=== PATIENT | female | born 1995 | race Caucasian/White ===

== ENCOUNTER 2018-10-23 06:04 | Emergency (ER) | payer SELFPAY ==
--- NOTE | 2018-10-23 08:16 | RAD ---
Exam:Right hand 3 views HISTORY: Fall. Trauma. Pain. Soft tissue swelling and edema. COMPARISON: None FINDINGS: Subluxation of the fourth digit at the proximal interphalangeal joint space. There is assoc iated soft tissue swelling involving the third, fourth and fifth digit. No fractures are appreciated. IMPRESSION: Subluxation of the fourth digit at the proximal interphalangeal joint space. Postreductio n films are recommended.
--- NOTE | 2018-10-23 08:17 | RAD ---
Exam:Right hand fourth digit 3 views HISTORY: Subluxation. Post reduction. COMPARISON: 10/23/2018 at 6:23 AM FINDINGS: Interval reduction of previous noted subluxation. No fracture. IMPRESSION: Interval reduction. No fracture.
== END 2018-10-23 07:31 | disposition home or self-care (01) ==
LOC: BURERS 06:04
DX: S63.284A Dislocation of proximal interphalangeal joint of right ring finger, initial encounter (principal); W18.30XA Fall on same level, unspecified, initial encounter
CPT/HCPCS: 26770